=== PATIENT | female | born 1980 | race African-American/Black ===

== ENCOUNTER 2021-05-01 02:31 | Emergency (ER) | payer BC ==
[~2021-05-01] VITALS: Ht 177.8 cm; Wt 68.0 kg
[2021-05-01] MEDS ORDERED: NORVASC5 MG PO (02:40)
[2021-05-01] MEDS ORDERED: CLARITIN10 M3 PO (02:41)
[2021-05-01 04:14] LABS: ABSOLUTE NEUTROPHILS 5.4 thou/uL (1.4-8.2); BASOPHILS 0.5 % (0.0-2.0); EOSINOPHILS 1.9 % (0.0-3.0); HEMATOCRIT 35.2 % (37.0-47.0); HEMOGLOBIN 11.3 gm/dL (12.0-15.0); LYMPHOCYTES 38.4 % (24.0-44.0); MCH 25.1 pg (26.0-34.0); MCHC 32.2 g/dL (28.0-37.0); MCV 78.1 fL (80.0-100.0); MONOCYTES 6.1 % (1.0-8.0); PLATELET COUNT 311 thou/uL (150-400); POLYS 53.1 % (36.0-66.0); RBC 4.51 mil/uL (4.20-5.00); RDW 15.4 % (10.5-14.5); WBC 10.1 thou/uL (4.0-11.0)
[2021-05-01 04:26] LABS: CALCIUM 9.4 mg/dL (8.5-10.1); CREATININE 0.8 mg/dL (0.6-1.0); POTASSIUM 3.1 mmol/L (3.5-5.1)
[2021-05-01 05:20] VITALS: BP 140/81
--- NOTE | 2021-05-01 08:40 | EKG ---
[address] [address] ELECTROCARDIOGRAM REPORT Name: TJ BAKER [id number] Admission: 05/01/21 Attend Phys: Discharge: 05/01/21 Date of : 82 Report #: [id number] [facility] ED Test Date: 2021-05-01 Test Time: 02:39:16 Pat Name: TJ BAKER Department: Room: Gender: F Clinical Documentation Specialist: BERTHA : 1980 Requested By: Samson Adame Order Number: [id number] MD: Nico Mcknight Measurements Intervals [place] Rate: 90 P: 64 UT: 169 QRS: 19 QRSD: 89 T: 58 QT: 462 QTc: 566 Interpretive Statements Sinus rhythm Nonspecific T abnrm, anterolateral leads Prolonged QT interval No previous ECG available for comparison Electronically Signed On 05-01-2021 8:40:24 POSTIE by Nico Mcknight [email or web address] <ELECTRONICALLY SIGNED> By: Nico Mcknight MD, LOCATED WITHIN [facility] 05/01/21 0840 [id number] Nico Mcknight MD, FACC /EPI
== END 2021-05-01 05:30 | disposition home or self-care (01) ==
LOC: EDBD 02:31 → ER 02:31
PROVIDERS: Emergency Medicine
DX: E87.6 Hypokalemia (principal); R00.2 Palpitations; I10 Essential (primary) hypertension; Z79.899 Other long term (current) drug therapy; Z88.8 Allergy status to other drugs, medicaments and biological substances